=== PATIENT | male | born 1970 | race Hispanic/Latino ===

== ENCOUNTER 2020-01-02 16:17 | Inpatient (IN) | payer BC, OTHER ==
[~2020-01-02] VITALS: Ht 177.8 cm; Wt 92.2 kg
[2020-01-02] MEDS ORDERED: AZITHROMYCIN 500MG/NS 250 ML 250 ML IV STA (16:28)
[2020-01-02] MEDS ORDERED: ACETAMINOPHEN 325 MG TAB PO STA (16:28)
--- NOTE | 2020-01-02 16:30 | Emergency Department Note ---
History of Present Illnes History of Present Illness History of Present Illness This is a 49 year old male presents to the ED acutely ill with fever malaise and myalgias . Clinical Engineer Required: No Onset (how long ago): day(s) Location: generalized body aches Severity: moderate Onset quality: gradual Duration (how long): day(s) Progression: worsening Context: Reports recent illness Relieving factors: none Exacerbating factors: none Associated symptoms: Reports fever/chills, Reports loss of appetite, Reports malaise, Reports shortness of breath, Reports weakness Treatments prior to arrival: none Past Medical/Family History Physician Review I have reviewed the patient's past medical and family history. Any updates have been documented here. Past Medical History Recent Fever: Yes Clinical Suspicion of Infectio: Yes New/Unexplained Change in Ment: No Past Medical History: None Past Surgical History: None Social History Smoking Cessation: Never Smoker Alcohol Use: None Any Illegal Drug Use: No Review of Systems Review of Systems Constitutional: Reports fever, Reports malaise EENTM: Reports no symptoms Cardiovascular: Reports no symptoms Respiratory: Reports dyspnea Gastrointestinal: Reports no symptoms Genitourinary: Reports no symptoms Musculoskeletal: Reports no symptoms Integumentary: Reports no symptoms Neurological: Reports no symptoms Psychological: Reports no symptoms Endocrine: Reports no symptoms Hematological/Lymphatic: Reports no symptoms Physical Exam Related Data Allergies: Coded Allergies: No Known Allergies (Unverified , 01/02/20) Triage Vital Signs Vital Signs Date Time Temp Pulse Resp B/P (MAP) Pulse Ox O2 Delivery O2 Flow Rate FiO2 01/02/20 16:36 100.5 108 24 137/86 94 Room Air 01/02/20 20:10 4.0 Vital signs reviewed: Yes Physical Exam CONSTITUTIONAL Constitutional: Present ill appearing HENT HENT: Present normocephalic, Present atraumatic, Present oropharynx clear/moist, Present nose normal HENT L/R: Present left ext ear normal, Present right ext ear normal EYES Eyes: Reports PERRL, Reports conjunctivae normal NECK Neck: Present ROM normal PULMONARY Pulmonary: Present other (decreased breath sounds) CARDIOVASCULAR Cardiovascular: Present regular rhythm, Present heart sounds normal, Present capillary refill normal, Present normal rate GASTROINTESTINAL Abdominal: Present soft, Present nontender, Present bowel sounds normal GENITOURINARY Genitourinary: Present exam deferred SKIN Skin: Present warm, Present dry MUSCULOSKELETAL Musculoskeletal: Present ROM normal NEUROLOGICAL Neurological: Present alert, Present oriented x 3, Present no gross motor or sensory deficits PSYCHOLOGICAL Psychological: Present mood/affect normal, Present judgement normal Results Laboratory Lab results reviewed: Yes Imaging Imaging results reviewed: Yes Impressions [place] [id number] Patient Name: SIM LANDON MR #: [id number] : 1970 Age/Sex: 49/M Req #: [id number] Adm Physician: Ordered by: THALIA FONG DO Report #: [id number] Location: ER Room/Bed: Procedure: [id number] DX/CHEST SINGLE (PORTABLE) Exam Date: 01/02/20 Exam Time: 1706 REPORT STATUS: Signed EXAMINATION: CHEST SINGLE (PORTABLE) INDICATION: Fever and difficulty breathing. COMPARISON: None FINDINGS: TUBES and LINES: None. LUNGS: There is multifocal patchy airspace opacities particularly in the lower lobes, left more right. PLEURA: No pleural effusion or pneumothorax. HEART AND MEDIASTINUM: The cardiomediastinal silhouette is unremarkable. BONES AND SOFT TISSUES: No acute osseous lesion. Soft tissues are unremarkable. UPPER ABDOMEN: No free air under the diaphragm. IMPRESSION: Multifocal patchy airspace opacities particularly in the lower lobes, left more to right. This findings are highly suspicious for multifocal infectious process such as viral pneumonia (including Covid-19). Signed by: Yoon Castaneda MD on 01/02/2020 5:53 PM Dictated By: YOON CASTANEDA MD 50 Transcribed By: DL on 01/02/201752 COPY TO: THALIA FONG DO~ Procedures 12 Lead ECG Interpretation ECG Interpretation : ECG: ECG 1 Clinical Engineer: Interpreted by ED physician Prior ECG tracings: reviewed Rhythm: sinus tachycardia Rate: tachycardia BPM: 109 ST segments normal: No ST segment flattening: I, II, V4, V5, V6 T waves normal: No T waves flattening: V4, V5, V6 Other findings: prolonged QTc interval Clinical Impression: abnormal ECG Critical Care Time Critcal care necessary due to: respiratory failure Critcal care time spent by me: develop tx plan w patient/surrogate, evaluation patient response to tx, examination of patient, obtaining hx from patient/surrogate, order/perform tx or interventions, order/review laboratory studies, order/review radiographic studies, pulse oximetry Assessment & Plan Medical Decision Making MDM 49 yom with fever and myalgias. (+) contact with family members with similiar symptoms. COVID-19 highly suspected in addition to differential diagnosis of PE, PTX, CHF, Sepsis, COVID-19 URI infection, ACS, ARDS, airway obstruction, Lung CA. . Oxygen saturation low. Plan to admit for oxygen and respiratory monitoring Assessment & Plan Final Impression: (1) Upper respiratory tract infection due to COVID-19 virus (2) Hypoxia (3) Hypokalemia (4) Transaminitis Depart Disposition: ADMITTED Home Meds Reported Medications Zolpidem Tartrate (AMBIEN) 10 Mg Tablet, 10 MG PO HS 01/02/20 THALIA FONG DO Jan 02, 2020 16:30
[2020-01-02 16:56] LABS: BASOPHILS % 0.2 % (0.0-1.0); HEMATOCRIT 43.7 % (38.2-49.6); HEMOGLOBIN 14.7 g/dL (14.0-18.0); LYMPHOCYTES # (AUTO) 0.7 (1.0-3.2); LYMPHOCYTES % 5.7 % (18.0-39.1); MEAN CORPUSCULAR HEMOGLOBIN 28.5 pg (28-32); MEAN CORPUSCULAR HGB CONC 33.6 g/dL (31-35); MEAN CORPUSCULAR VOLUME 84.9 fL (81-99); MONOCYTES # (AUTO) 0.2 (0.2-0.8); MONOCYTES % 1.8 % (4.4-11.3); NEUTROPHILS # (AUTO) 10.6 (2.1-6.9); NEUTROPHILS % 91.8 % (38.7-80.0); PLATELET COUNT 165 x10e3/uL (140-360); RED BLOOD COUNT 5.15 x10e6/uL (4.3-5.7); RED CELL DISTRIBUTION WIDTH 13.2 % (11.7-14.4)
[2020-01-02 17:21] LABS: B-TYPE NATRIURETIC PEPTIDE2 12.1 pg/mL (0-100)
[2020-01-02 17:27] LABS: ALANINE AMINOTRANSFERASE 72 IU/L (0-55); ALBUMIN 3.3 g/dL (3.5-5.0); ALBUMIN/GLOBULIN RATIO 0.7 (0.8-2.0); ALKALINE PHOSPHATASE 92 IU/L (40-150); ANION GAP 13.4 mmol/L (8-16); BLOOD UREA NITROGEN 13 mg/dL (7-26); BUN/CREATININE RATIO 14 (6-25); CALCIUM 9.3 mg/dL (8.4-10.2); CARBON DIOXIDE 26 mmol/L (22-29); CHLORIDE 103 mmol/L (98-107); CREATINE KINASE 61 IU/L (30-200); CREATININE, SERUM 0.92 mg/dL (0.72-1.25); EST GLOMERULAR FILTRATION RATE > 60 ML/MIN (60-); GLUCOSE 163 mg/dL (74-118); POTASSIUM 3.4 mmol/L (3.5-5.1); SODIUM 139 mmol/L (136-145)
--- NOTE | 2020-01-02 17:56 | Diagnostic Imaging Report ---
EXAMINATION: CHEST SINGLE (PORTABLE) INDICATION: Fever and difficulty breathing. COMPARISON: None FINDINGS: TUBES and LINES: None. LUNGS: There is multifocal patchy airspace opacities particularly in the lower lobes, left more right. PLEURA: No pleural effusion or pneumothorax. HEART AND MEDIASTINUM: The cardiomediastinal silhouette is unremarkable. BONES AND SOFT TISSUES: No acute osseous lesion. Soft tissues are unremarkable. UPPER ABDOMEN: No free air under the diaphragm. IMPRESSION: Multifocal patchy airspace opacities particularly in the lower lobes, left more to right. This findings are highly suspicious for multifocal infectious process such as viral pneumonia (including Covid-19). Signed by: Theo Carrasco MD on 01/02/2020 5:53 PM
[2020-01-02] MEDS ORDERED: SOD CHL 0.45%/POT CHL 20MEQ 1,000 ML IV ONE (19:15)
[2020-01-02] MEDS: CEFTRIAXONE SOD 1 GM/NS 50 ML 50 ML IV SCH (19:19)
[2020-01-02] MEDS ORDERED: AMBIEN10 MG PO (19:33)
[2020-01-02] MEDS ORDERED: IBUPROFEN 600 MG TAB PO STA (20:14)
[2020-01-02] MEDS: ENOXAPARIN SOD INJ 40 MG/0.4 ML SYR SC SCH (20:32)
--- NOTE | 2020-01-02 21:00 | Consultation ---
DATE OF CONSULTATION: Pulmonary Critical Care Consultation CHIEF COMPLAINT: Fever and cough. HISTORY OF PRESENT ILLNESS: The patient is a 49-year-old man. He has no prior cardiopulmonary history. He complains of fever and cough for 9 days. He noticed some increased dyspnea as well. He does not complain of chest pain. He has no nausea or vomiting. He has no leg edema. PAST SURGICAL HISTORY: None. PAST MEDICAL HISTORY: 1. The patient has no prior respiratory problems. 2. No prior cardiac problems. 3. No prior diabetes. SOCIAL HISTORY: The patient is not a drinker. The patient is not a smoker. FAMILY HISTORY: Family history is noncontributory. ALLERGIES: NO KNOWN DRUG ALLERGIES. REVIEW OF SYSTEMS: The patient reports some fevers. There is no headache. He has no neck pain. He has no chest pain. He does have dyspnea and cough. He has no abdominal pain. There is no nausea or vomiting. He has no leg edema. PHYSICAL EXAMINATION: VITAL SIGNS: Blood pressure is 139/78 and the saturation is 95%. T-max is 100.2. HEENT: Shows no facial swelling or erythema. CARDIAC: Reveals regular rate and rhythm with normal S1 and S2. LUNGS: Auscultation of lungs reveals rhonchorous breath sounds bilaterally. There is no wheezing. ABDOMEN: Soft and nontender. There is no rebound or guarding. EXTREMITIES: Shows no leg edema or calf tenderness. There is no cyanosis or clubbing. SKIN: Shows no rashes. NEUROLOGICAL: Shows no focal abnormalities new. LABORATORY DATA: White blood cell count of 11.5 and the hemoglobin is 14.7. The platelet count is 165. BUN to creatinine ratio is normal. The other electrolytes are within normal limits. The albumin is 3.3. RADIOGRAPHIC DATA: Chest x-ray shows bilateral interstitial opacities, suspicious for viral pneumonia. IMPRESSION: Viral pneumonia and COVID-19 infection. PLAN: 1. Zithromax and Rocephin. 2. Lovenox. 3. IV fluids. 4. Oxygen. 5. Dexamethasone. Yayo Horowitz MD [facility]/MODL /[id number]
[2020-01-02] MEDS: ACETAMINOPHEN 325 MG TAB PO PRN (21:10)
--- NOTE | 2020-01-02 23:05 | NUR ---
RT called at this time to place patient in high flow oxygen. Addendum: 01/02/20 at 2305 by ABIODUN High flow nasal cannula*
[2020-01-03] VITALS (10 sets, daily range): BP systolic 131–162; BP diastolic 81–93
--- NOTE | 2020-01-03 | NUR ---
Patient oxygen saturation level maintaining at 94-95% on 5L NC. Request for high flow nasal cannula cancelled at this time.
--- NOTE | 2020-01-03 00:30 | NUR ---
Received pt to unit via stretcher accompany by ED staff. Pt noted to have SOB with conversation and any activity. Pt denies cough or pain. O2NC in plae and pt sat 93% 5L. Able to make needs known to staff. Will admit and cont to mon. Bed in low and locked position, call light and personal items within reach. Enc pt to call for any assistance. Verbalized understanding. Opportunity for questions with answers for pt.
[2020-01-03] MEDS: GUAIFENESIN/CODEINE 10 ML CUP PO PRN ×2 (01:00→06:18)
[2020-01-03] MEDS: ZOLPIDEM TARTRATE 5 MG TAB PO PRN ×2 (01:00→22:05)
[2020-01-03] MEDS ORDERED: INFLUENZA VIRUS VAC SPLIT INJ 0.5 ML SYR IM SCH (02:09)
[2020-01-03 05:48] LABS: BASOPHILS % 0.2 % (0.0-1.0); EOSINOPHILS % 0.1 % (0.0-6.0); HEMATOCRIT 40.3 % (38.2-49.6); HEMOGLOBIN 13.2 g/dL (14.0-18.0); LYMPHOCYTES # (AUTO) 0.9 (1.0-3.2); LYMPHOCYTES % 7.1 % (18.0-39.1); MEAN CORPUSCULAR HGB CONC 32.8 g/dL (31-35); MEAN CORPUSCULAR VOLUME 85.4 fL (81-99); MONOCYTES # (AUTO) 0.2 (0.2-0.8); MONOCYTES % 1.9 % (4.4-11.3); NEUTROPHILS # (AUTO) 11.1 (2.1-6.9); NEUTROPHILS % 89.8 % (38.7-80.0); PLATELET COUNT 141 x10e3/uL (140-360); RED BLOOD COUNT 4.72 x10e6/uL (4.3-5.7); RED CELL DISTRIBUTION WIDTH 13.2 % (11.7-14.4)
[2020-01-03] MEDS: DEXAMETHASONE SOD PHOS INJ 4 MG/ML VIAL IV SCH (06:00)
[2020-01-03] MEDS ORDERED: DEXAMETHASONE SOD PHOS 10 MG/1 ML VIAL IV SCH (06:00)
[2020-01-03] MEDS: ACETAMINOPHEN 325 MG TAB PO PRN ×2 (06:18→21:40)
[2020-01-03 06:35] LABS: ALANINE AMINOTRANSFERASE 65 IU/L (0-55); ALBUMIN 2.7 g/dL (3.5-5.0); ALBUMIN/GLOBULIN RATIO 0.6 (0.8-2.0); ALKALINE PHOSPHATASE 91 IU/L (40-150); ANION GAP 12.8 mmol/L (8-16); BLOOD UREA NITROGEN 14 mg/dL (7-26); BUN/CREATININE RATIO 19 (6-25); CALCIUM 8.6 mg/dL (8.4-10.2); CARBON DIOXIDE 25 mmol/L (22-29); CHLORIDE 105 mmol/L (98-107); CREATININE, SERUM 0.73 mg/dL (0.72-1.25); EST GLOMERULAR FILTRATION RATE > 60 ML/MIN (60-); GLUCOSE 107 mg/dL (74-118); POTASSIUM 3.8 mmol/L (3.5-5.1); SODIUM 139 mmol/L (136-145)
--- NOTE | 2020-01-03 07:00 | NUR ---
RECEIVED PATIENT AWAKE RESTING IN BED NO S/S OF DISTRESS. BED LOW, WHEELS LOCKED, SIDE RAILS X2. CALL LIGHT IN REACH WILL CONTINUE TO MONITOR PATIENT.
[2020-01-03] MEDS: ENOXAPARIN SOD INJ 40 MG/0.4 ML SYR SC SCH ×2 (07:46→21:45)
--- NOTE | 2020-01-03 15:29 | Progress Note ---
DATE: SUBJECTIVE: The patient reports some subjective improvement, but still has dyspnea. He still has cough. He is requiring 7 L of oxygen. PHYSICAL EXAMINATION: VITAL SIGNS: The blood pressure is 142/87. Saturation is 94% on 7 L. Pulse is 87. Respiratory rate is in the high 20s. HEENT: Shows no facial swelling or erythema. CARDIAC: Reveals regular rate and rhythm with normal S1 and S2. LUNGS: Auscultation of lungs reveals crackles at the bases. There is no wheezing. ABDOMEN: Soft and nontender. There is no rebound or guarding. EXTREMITIES: Shows no leg edema or calf tenderness. There is no cyanosis or clubbing. SKIN: Shows no rashes. NEUROLOGICAL: Shows no focal abnormalities. RADIOGRAPHIC DATA: Shows some bilateral infiltrates. LABORATORY DATA: White blood cell count is 12.4 and the hemoglobin is 13.2. The platelet count is 141. BUN to creatinine ratio is normal. Other electrolytes are within normal limits. Albumin is 2.7. IMPRESSION: 1. Acute respiratory failure. 2. Viral pneumonia and COVID-19 infection. PLAN: 1. Continue Rocephin and Zithromax. 2. Continue dexamethasone. 3. Lovenox. 4. Supplemental oxygen as needed. 5. Tylenol as needed. Yayo Horowitz MD [facility]/MODL /[id number]
[2020-01-03] MEDS ORDERED: REMDESIVIR 200MG/NS 100ML 200 MG IV ONE (18:00)
[2020-01-03] MEDS: CEFTRIAXONE SOD 1 GM/NS 50 ML 50 ML IV SCH (19:55)
--- NOTE | 2020-01-03 20:30 | NUR ---
Blood zbigniew and sent to the lab for type and screen.pt tolerated well.
--- NOTE | 2020-01-03 20:31 | Consultation ---
DATE OF CONSULTATION: REASON FOR CONSULTATION: COVID-19. HISTORY OF PRESENT ILLNESS: This patient, who is a 49-year-old gentleman comes in with shortness of breath and fever for 9 days. He told me 11 days and the patient is currently admitted and I am asked to see him. The patient when first came, white count was 11, today 12. His COVID-19 was positive. Sodium 139, potassium 3.8, and creatinine 0.7. He is currently on Lovenox, dexamethasone, Rocephin, and azithromycin. PAST MEDICAL HISTORY: Denies. PAST SURGICAL HISTORY: Denies. ALLERGIES: NKA. SOCIAL HISTORY: There is no smoking, drug abuse, or alcohol abuse. When he first came, he was on 4 L, now he is on 7. PHYSICAL EXAMINATION: GENERAL: Currently alert and oriented. Does not seem to be in acute distress. VITAL SIGNS: Stable, currently afebrile. HEENT: Not icteric. NECK: Supple. CHEST: Clear. HEART: S1 and S2. No S3, S4, or murmur. ABDOMEN: Soft. IMPRESSION: Worsening respiratory failure. Discussed with the patient about remdesivir. He agreed that this drug is experimental. He did read the fact sheet and we are going to start him at 200 mg IV piggyback now and then 100 mg daily for 5 days. Also discussed with the patient about convalescent plasma. He agreed to it. We will start it once available. We will follow. MD HEBERT Arevalo/RUTH /[id number]
[2020-01-03] MEDS: AZITHROMYCIN 500MG/NS 250 ML 250 ML IV SCH (20:46)
[2020-01-04] VITALS (8 sets, daily range): BP systolic 120–148; BP diastolic 79–90
--- NOTE | 2020-01-04 00:39 | NUR ---
RESTING IN THE BED.HOB IS ELEVATED. HIGH FLOW NASAL CANNULA OXYGEN 15 LITRE GETTING.NO COUGH.PHONE AND CALL LIGHT WITHIN REACH.STABLE CONDITION.
[2020-01-04] MEDS: GUAIFENESIN/CODEINE 10 ML CUP PO PRN (05:21)
[2020-01-04] MEDS: DEXAMETHASONE SOD PHOS INJ 4 MG/ML VIAL IV SCH (05:29)
--- NOTE | 2020-01-04 05:31 | NUR ---
Patient is coughing.medication given.slept well during night.
--- NOTE | 2020-01-04 07:00 | NUR ---
RECEIVED BEDSIDE SHIFT REPORT FROM TOP TILE DECORATOR RN. PT DENIES NEEDS AT THIS TIME.
--- NOTE | 2020-01-04 07:08 | NUR ---
REPORT GIVEN TO ONCOMING RN.STABLE CONDITION.
[2020-01-04] MEDS: ENOXAPARIN SOD INJ 40 MG/0.4 ML SYR SC SCH ×2 (08:43→20:56)
[2020-01-04] MEDS: REMDESIVIR 100MG/NS 100ML 100 MG IV SCH (14:38)
[2020-01-04] MEDS: ASCORBIC ACID 500 MG TAB PO SCH (16:10)
[2020-01-04] MEDS: CHOLECALCIFEROL 400 UNIT TAB PO SCH (16:11)
[2020-01-04] MEDS: ZINC SULFATE 220 MG CAP PO SCH (16:11)
[2020-01-04] MEDS: CEFTRIAXONE SOD 1 GM/NS 50 ML 50 ML IV SCH (19:38)
[2020-01-04] MEDS: AZITHROMYCIN 500MG/NS 250 ML 250 ML IV SCH (20:30)
--- NOTE | 2020-01-04 21:02 | NUR ---
ASSESSMENT DONE.NO RESP.DISTRESS.NO PAIN VOICED.LYEING IN THE BED.BED LOCKED AND IN LOWEST POSITION.PHONE AND CALL LIGHT WITHIN REACH.HIGH FLOW O2 NC 15 LITRE RUNNING.
[2020-01-04] MEDS: ZOLPIDEM TARTRATE 5 MG TAB PO PRN (23:20)
[2020-01-05] MEDS: GUAIFENESIN/CODEINE 10 ML CUP PO PRN ×2 (00:12→23:00)
[2020-01-05 00:49] VITALS: BP 139/96
--- NOTE | 2020-01-05 05:40 | NUR ---
V/S STABLE.FIRST UNIT OF PLASMA TRANSFUSION STARTED AFTER VERIFY WITH ANOTHER RN.STABLE CONDITION.
--- NOTE | 2020-01-05 06:15 | NUR ---
First unit of plasma transfusion completed.patient tolerated well.
[2020-01-05] MEDS: DEXAMETHASONE SOD PHOS INJ 4 MG/ML VIAL IV SCH (06:40)
--- NOTE | 2020-01-05 07:17 | NUR ---
REPORT GIVEN TO ONCOMING RN.STABLE CONDITION.
[2020-01-05 08:50] VITALS: BP 140/82
[2020-01-05] MEDS: ASCORBIC ACID 500 MG TAB PO SCH (09:00)
[2020-01-05] MEDS: ZINC SULFATE 220 MG CAP PO SCH (09:00)
[2020-01-05] MEDS: ENOXAPARIN SOD INJ 40 MG/0.4 ML SYR SC SCH ×2 (09:00→21:00)
[2020-01-05] MEDS ORDERED: ASCORBIC ACID 500 MG TAB PO SCH (09:00)
[2020-01-05] MEDS: CHOLECALCIFEROL 400 UNIT TAB PO SCH (09:00)
[2020-01-05 12:12] VITALS: BP 132/81
--- NOTE | 2020-01-05 12:56 | Diagnostic Imaging Report ---
EXAM: CHEST SINGLE (PORTABLE) DATE: 01/05/2020 12:08 PM INDICATION: Pneumonia COMPARISON: 01/02/2020 FINDINGS/IMPRESSION: The trachea is midline. There are increased interstitial and patchy airspace opacities identified throughout the lungs bilaterally which appears slightly more prominent than the prior examination from 01/02/2020. Findings are concerning for a multifocal/viral infectious process. There is no evidence for pneumothorax or significant volume pleural effusion. The cardiomediastinal silhouette is stable in appearance. No acute osseous abnormality is identified. Signed by: Dr. Mo Main MD on 01/05/2020 12:53 PM
--- NOTE | 2020-01-05 13:19 | Progress Note ---
DATE: SUBJECTIVE: The patient is seen and evaluated, available labs and notes reviewed. Discussed with Dr. Brown and discussed with the nursing staff. The patient states that he is doing really good, but to me still short of breath and coughing during our conversation. The patient remains on 14 L of nasal cannula with saturation of 92%, however it is documented at 5 L. MEDICATIONS: Reviewed. Remdesivir day #2, vitamin C, zinc sulfate, vitamin D, Lovenox, status post convalescent plasma x1 yesterday, on Zithromax, Rocephin, and dexamethasone. LABORATORY STUDIES: White count of 12.4, hemoglobin 13.2, platelet 141. Sodium 139, potassium 3.8, and creatinine 0.73. Coronavirus PCR is detected on 01/01. MICROBIOLOGY: Blood culture, negative 48 hours. RADIOLOGY STUDIES: Chest x-ray from today is pending. PHYSICAL EXAMINATION: VITAL SIGNS: Temperature 98.2, pulse is 72, respirations 20, and blood pressure 132/81. GENERAL: Alert and oriented, sitting up in the bed. CV: S1-S2. CHEST: Equal expansion. Rales, bilateral. ABDOMEN: Soft. No tenderness. HEENT: Moist. No pallor. No JVD. EXTREMITIES: Moves all. ASSESSMENT AND PLAN: 1. Coronavirus disease-19 pneumonia. 2. Concert superimposed bacterial pneumonia. 3. Respiratory failure. 4. Leukocytosis. 5. Elevated liver function test, improved. Continue with antibiotic as above. Continue as planned. Continue with oxygen. Monitor the patient. Further management of this patient is based on daily findings on laboratory and physical examination. Discussed with Dr. Brown in details. Dictated by Cristhian James PA-C (Al) Octavia Brown MD /MODL /[id number]
[2020-01-05] MEDS: REMDESIVIR 100MG/NS 100ML 100 MG IV SCH (14:57)
--- NOTE | 2020-01-05 16:50 | Progress Note ---
DATE: SUBJECTIVE: The patient is feeling better. He has less dyspnea. He is still on a high-flow nasal cannula. PHYSICAL EXAMINATION: VITAL SIGNS: Blood pressure is 132/81, pulse is 72, saturation is 92%. HEENT: No facial swelling or erythema. CARDIAC: Reveals regular rate and rhythm with normal S1, S2. LUNGS: Auscultation of lungs reveals rhonchorous breath sounds bilaterally. There is no wheezing. ABDOMEN: Soft and nontender. There is no rebound or guarding. EXTREMITIES: No leg edema or calf tenderness. There is no cyanosis or clubbing. SKIN: No rashes. NEUROLOGICAL: No focal abnormalities. LABORATORY DATA: White blood cell count is 12.4 and hemoglobin is 13.2. The platelet count is 141. The BUN to creatinine ratio is normal. The other electrolytes are within normal limits and the albumin is 2.7. IMPRESSION: 1. Acute respiratory failure. 2. Viral pneumonia and coronavirus disease-19 infection. PLAN: 1. Continue to wean oxygen. 2. Complete remdesivir. 3. Complete antibiotics. 4. Complete dexamethasone. Yayo Horowitz MD [facility]/MODL /[id number]
[2020-01-05 19:55] VITALS: BP 125/82
[2020-01-05] MEDS ORDERED: SODIUM CHLORIDE 0.9% 250ML 250 ML ONE (20:20)
[2020-01-05] MEDS: CEFTRIAXONE SOD 1 GM/NS 50 ML 50 ML IV SCH (20:30)
[2020-01-05] MEDS: AZITHROMYCIN 500MG/NS 250 ML 250 ML IV SCH (20:30)
[2020-01-06] VITALS (7 sets, daily range): BP systolic 102–124; BP diastolic 69–86
[2020-01-06] MEDS: DEXAMETHASONE SOD PHOS INJ 4 MG/ML VIAL IV SCH (06:03)
[2020-01-06] MEDS: ZINC SULFATE 220 MG CAP PO SCH (09:00)
[2020-01-06] MEDS: ENOXAPARIN SOD INJ 40 MG/0.4 ML SYR SC SCH ×2 (09:00→20:30)
[2020-01-06] MEDS: CHOLECALCIFEROL 400 UNIT TAB PO SCH (09:00)
[2020-01-06] MEDS: ASCORBIC ACID 500 MG TAB PO SCH (09:00)
[2020-01-06 10:07] LABS: BASOPHILS % 0.1 % (0.0-1.0); HEMATOCRIT 41.2 % (38.2-49.6); HEMOGLOBIN 13.6 g/dL (14.0-18.0); LYMPHOCYTES # (AUTO) 0.8 (1.0-3.2); LYMPHOCYTES % 9.5 % (18.0-39.1); MEAN CORPUSCULAR HEMOGLOBIN 28.2 pg (28-32); MEAN CORPUSCULAR VOLUME 85.5 fL (81-99); MONOCYTES # (AUTO) 0.5 (0.2-0.8); MONOCYTES % 5.7 % (4.4-11.3); NEUTROPHILS # (AUTO) 7.3 (2.1-6.9); PLATELET COUNT 249 x10e3/uL (140-360); RED BLOOD COUNT 4.82 x10e6/uL (4.3-5.7); RED CELL DISTRIBUTION WIDTH 13.4 % (11.7-14.4)
[2020-01-06 10:26] LABS: ALANINE AMINOTRANSFERASE 140 IU/L (0-55); ALBUMIN 2.7 g/dL (3.5-5.0); ALBUMIN/GLOBULIN RATIO 0.7 (0.8-2.0); ALKALINE PHOSPHATASE 76 IU/L (40-150); ANION GAP 12.4 mmol/L (8-16); BLOOD UREA NITROGEN 20 mg/dL (7-26); BUN/CREATININE RATIO 25 (6-25); CALCIUM 8.7 mg/dL (8.4-10.2); CARBON DIOXIDE 24 mmol/L (22-29); CHLORIDE 104 mmol/L (98-107); CREATININE, SERUM 0.81 mg/dL (0.72-1.25); EST GLOMERULAR FILTRATION RATE > 60 ML/MIN (60-); GLUCOSE 153 mg/dL (74-118); POTASSIUM 4.4 mmol/L (3.5-5.1); SODIUM 136 mmol/L (136-145)
[2020-01-06] MEDS: REMDESIVIR 100MG/NS 100ML 100 MG IV SCH (14:00)
--- NOTE | 2020-01-06 15:26 | Progress Note ---
DATE: SUBJECTIVE: The patient is feeling slightly better, but still has some dyspnea. There is some mild cough. PHYSICAL EXAMINATION: VITAL SIGNS: Saturation is in the low 90s on high-flow oxygen. Pulse is 55-60 and respiratory rate is 22. HEENT: No facial swelling or erythema. CARDIAC: Regular rate and rhythm with normal S1, S2. LUNGS: Auscultation of lungs reveals rhonchorous breath sounds bilaterally. There is no wheezing. ABDOMEN: Soft, nontender. There is no rebound or guarding. EXTREMITIES: No leg edema or calf tenderness. There is no cyanosis or clubbing. SKIN: No rashes. NEUROLOGICAL: No focal abnormalities. IMPRESSION: 1. Acute respiratory failure. 2. Viral pneumonia and coronavirus disease-19 infection. PLAN: 1. Continue to wean oxygen. 2. Complete remdesivir. 3. Lovenox. 4. Dexamethasone. 5. Complete antibiotics. Yayo Horowitz MD [facility]/MODL /[id number]
--- NOTE | 2020-01-06 19:28 | NUR ---
report given to oncoming nurse, pt stable at shift change.
[2020-01-06] MEDS: CEFTRIAXONE SOD 1 GM/NS 50 ML 50 ML IV SCH (19:30)
[2020-01-06] MEDS ORDERED: AZITHROMYCIN 250 MG TAB PO SCH (20:00)
--- NOTE | 2020-01-06 20:21 | NUR ---
Received pt in bed awake, a/ox4, no s/sx of distress noted, pt denies discomfort at this time. Bed in low and locked position, call light and personal items within reach. Will attempt to wean pt this shift. Will cont to mon.
[2020-01-06] MEDS: ZOLPIDEM TARTRATE 5 MG TAB PO PRN (22:35)
[2020-01-07] VITALS: BP 111/63
[2020-01-07 04:00] VITALS: BP 100/64
--- NOTE | 2020-01-07 04:51 | Progress Note ---
DATE: 01/06/2020 SUBJECTIVE: Mr. Styles is doing better. REVIEW OF SYSTEMS: HEENT: Negative. PULMONARY: Negative. He still has some shortness of breath and cough. This is day #4. PHYSICAL EXAMINATION: GENERAL: He is currently alert, oriented. VITAL SIGNS: Stable, currently afebrile. HEENT: He is not icteric. NECK: Supple. CHEST: Clear. IMPRESSION AND PLAN: Respiratory failure, better. If the patient improved, to be discharged home with home oxygen, wean as tolerated. Going to finish remdesivir. Once he is discharged, he can go home on with Eliquis 2.5 mg p.o. b.i.d. for 60 days, oxygen wean with the Ventolin inhaler. Discussed with the patient at length. There is no need to recheck PCR. To finish two weeks of home quarantine, everyone in the house seems to be infected. MD HEBERT Arevalo/RUTH /[id number]
[2020-01-07] MEDS: DEXAMETHASONE SOD PHOS INJ 4 MG/ML VIAL IV SCH (06:00)
--- NOTE | 2020-01-07 06:31 | NUR ---
Pt resting in bed, no s/sx of distress noted, will report off to oncoming staff .
--- NOTE | 2020-01-07 07:00 | NUR ---
received report from PM nurse. pt in stable condition.
[2020-01-07 07:52] VITALS: BP 116/74
[2020-01-07 08:38] VITALS: BP 116/74
[2020-01-07] MEDS: CHOLECALCIFEROL 400 UNIT TAB PO SCH (09:33)
[2020-01-07] MEDS: ASCORBIC ACID 500 MG TAB PO SCH (09:33)
[2020-01-07] MEDS: ZINC SULFATE 220 MG CAP PO SCH (09:33)
[2020-01-07] MEDS: ENOXAPARIN SOD INJ 40 MG/0.4 ML SYR SC SCH (09:33)
[2020-01-07] MEDS: GUAIFENESIN/CODEINE 10 ML CUP PO PRN (09:34)
--- NOTE | 2020-01-07 10:54 | NUR ---
Nutrition Screen Note RD Recommendation for Physician: Continue diet as ordered Plan of Care: RD following and will monitor for adequacy and tolerance. Nutrition reason for involvement: LOS Primary Diagnose(s): COVID-19 pnemonia Ht: 70 in Wt:203.38lb BMI:166 kg/m2 IBW:[address] Assessment:(01/07/2020) Per current hospital protocol RD has been instructed not to visit COVID -19 positive patients and to call nurse assigned to patient. RD called extension [phone] and spoke to nurse. Nurse states that Pt is eating very well and that he denies any nausea,vomiting or diarrhea. Pt has no complaints of difficulty chewing or swallowing. Current Diet: Cardiac diet Malnutrition Evaluation (01/07/2020) The patient does not meet criteria for a specified degree of malnutrition at this time. Will re-evaluate at follow-up as appropriate. Diet Education Needs Assessment: Diet education not indicated. Diet Adequacy: Meeting calorie needs, Meeting protein needs, Meeting fluid needs Tolerance: Tolerating PO Nutrition Care Level: jaylene Hall RD, LD, CNSC
[2020-01-07 11:29] VITALS: BP 119/60
--- NOTE | 2020-01-07 13:40 | NUR ---
spoke with Dr. Brown at bedside, states pt is okay to be discharged, no need to give last dose of Remsivir. Dr. Cazares states okay to discharge pt and lab work ordered for today can be cancelled and done on outpatient basis.
[2020-01-07] MEDS: REMDESIVIR 100MG/NS 100ML 100 MG IV SCH (13:47)
--- NOTE | 2020-01-07 14:05 | Progress Note ---
DATE: Internal Medicine Progress Note The patient is feeling slightly better today, some mild dyspnea, some cough. PHYSICAL EXAMINATION: VITAL SIGNS: Oxygen saturation in the 90s. CARDIOVASCULAR: Regular rate and rhythm. Normal S1 and S2 sound. LUNGS: Show rhonchorous breaths bilaterally. No wheezing. ABDOMEN: Soft, nontender. No distention. EXTREMITIES: Show no edema or cyanosis. SKIN: Showed no rashes. NEUROLOGIC: No focal abnormality. FINAL IMPRESSION: 1. Acute respiratory failure secondary to coronavirus disease 2019 pneumonia. 2. Coronavirus disease 2019 pneumonia. PLAN OF TREATMENT: Continue with ceftriaxone 1 g IV daily. Continue remdesivir 100 mg IV once a day x4, Tylenol 650 mg q.4 hours as needed for pain or fever, vitamin C 1000 mg daily, Zithromax 500 mg daily p.o., cholecalciferol, which is vitamin D3 of 400 units daily, dexamethasone 6 mg IV daily, Lovenox 40 mg subcutaneously twice a day. Continue Robitussin 10 mL q.4 hours as needed for cough. He was given the influenza vaccine, zinc sulfate 220 mg daily, Ambien 5 mg at night p.r.n. for insomnia. The patient is progressing well, so tentative discharge pretty soon. Also on the blood work, we have CBC; white count 8.76, hemoglobin 13.6, hematocrit 41.2, and platelet count 249,000. On the BMP; sodium 136, potassium 4.4, chloride 104, CO2 of 24, anion gap 12.4, BUN 20, creatinine 0.81, GFR is 60, glucose 153, hemoglobin A1c 5.8, lactic acid 1.7, calcium 8.7, total bilirubin 0.4, AST 73, ALT 140, alkaline phosphatase of 76, albumin 2.7, globulin 4.0. We are going to recheck on the liver function tests. I am going to order some blood tests including iron, ferritin, antinuclear antibody, hepatitis profile, serum plasmin levels also to check on that. Time spent 45 minutes. MD ERIK Cuello/RUTH /[id number]
--- NOTE | 2020-01-07 20:38 | Progress Note ---
DATE: SUBJECTIVE: Mr. Styles is feeling better. There is no new complaint. OBJECTIVE: GENERAL: He is currently alert and oriented, does not seem to be in acute distress. VITAL SIGNS: Stable. Afebrile. HEENT: He is not icteric. NECK: Supple. CHEST: Clear. HEART: S1, S2. No murmurs. ABDOMEN: Soft. Bowel sounds present. EXTREMITIES: No edema. IMPRESSION: Coronavirus disease-19. Doing well. The patient to be discharged home. Follow up as outpatient. There is no need to repeat PCR. The patient is not infectious 2 weeks after onset of symptoms. All household already been exposed. To finish 2 weeks of home quarantine. No need for any treatment. Just supportive care. Discussed with the patient. Answered all his questions. Discussed with medical team. MD HEBERT Arevalo/RUTH /[id number]
== END 2020-01-07 15:03 | disposition home or self-care (01) | DRG 177 ==
LOC: ER 16:30 → ERHOLD 18:07 → IMCU 23:38
PROC: 30233K1 Transfusion of Nonautologous Frozen Plasma into Peripheral Vein, Percutaneous Approach (ICD-10-PCS; principal; 2020-01-05)
DX: U07.1 COVID-19 (principal); J12.9 Viral pneumonia, unspecified; J96.01 Acute respiratory failure with hypoxia
CPT/HCPCS: 36415; 71045; 80053; 82550; 82553; 83036; 83605; 83880; 84484; 85025; 86039; 86900; 87040; 93005; 96361; 99284; J0456; J0696; J1100; J1650; J7050; P9017; U0002